=== PATIENT | male | born 1985 | race Caucasian/White ===

== ENCOUNTER 2024-03-30 05:00 | Day surgery (SDC) | payer OTHER, SELFPAY ==
[2024-03-30] VITALS (22 sets, daily range): BP systolic 101–147; BP diastolic 53–92; BMI 37.9; BMI 37.8
--- NOTE | 2024-03-30 00:48 | ED.GENMED ---
History of Present Illness
General
Chief Complaint: Abdominal Pain
Source: patient
Exam Limitations: none
Time Seen by Provider: 03/30/24 00:47
Nursing documentation reviewed up to this point in time: agreed with
History of Present Illness
History of Present Illness:
39-year-old male with history of HLD, fatty liver, depression, states 2 hours ago he had a sudden onset gas-like pains in his upper abdomen quickly progressed to significant pain across the upper abdomen and into the center of his back. He denies
fever or chills. He feels a little nauseous but has not vomited. He denies diarrhea or constipation. Pain started right after he had a couple coffee and a protein bar at 8:30 PM.
Past History
Past History
ED Past Medical History: HTN, Hypercholesterolemia and Psychiatric (Anxiety)
ED Past Surgical History: Other (left knee sx; back L5-S1 surgery 2009)
Social History
Tobacco: Smoker
Alcohol: Daily (Rum and Coke 2)
Drug: Former user (Opiates)
Personal: Single
Living: with family
Employment: Employed
Family History
Family History: Other (reviewed and non-contributory)
Review of Systems
Review of Systems
Allergies reviewed?: Yes
All Other Systems: ROS reviewed and negative except as documented in HPI and ROS
Constitutional: Denies fever or chills
Respiratory: Denies trouble breathing
Cardiac: Denies chest pain
ABD/GI: Reports abdominal pain and nausea; Denies vomiting, diarrhea, constipated, bloody stools or black stools
: Denies dysuria, frequency or difficulty voiding
Musculoskeletal: Reports no symptoms
Skin: Reports no symptoms
Neurological: Reports no symptoms
Phy Exam
Physical Exam
Physical Exam:
GENERAL: Moderate distress due to pain. A&Ox3.
CONSTITUTIONAL: Afebrile.
EYES: clear, conjunctivae normal
ENMT: moist mucus membranes, Pharynx nl
RESPIRATORY: Regular respirations, nonlabored, lungs clear.
CARDIOVASCULAR: Regular rate and rhythm, no murmurs, no rubs.
GI: Soft, obese, tender upper mid to right RUQ abdomen, normal BS
MUSCULOSKELETAL: Moves with ease. Well perfused.
SKIN: Warm, dry, pink
PSYCH: Normal mood and affect. Well kept, interactive and appropriate
NEUROLOGIC: Awake, alert and oriented. No focal neurological deficits
Course
Orders/Labs/Results
Orders:
Orders
03/30/24
RF Fluoroscopy, C-arm Routine
RF Operative Cholangiogram Routine
Reason For Exam: Elevated LFT
03/30/24 00:40
IV Insert/Care/Rem.- Treatment PRN
03/30/24 00:48
US Abdomen Complete/Upper Urgent
Comment:
Reason For Exam: RUQ pain
03/30/24 00:49
0.9% Sodium Chloride 1000 ml [Nss] 1,000 ml IV BOLUS
HYDROmorphone [Dilaudid] 1 mg IV NOW STA
Ondansetron Injectable [Zofran] 4 mg IV NOW STA
03/30/24 00:53
Complete Blood Count/With Diff Urgent
Comprehensive Metabolic Panel Urgent
Lipase Urgent
Urinalysis Reflex To Culture Urgent
Date Specimen was Collected: 03/30/24
Time Specimen was Collected: 00:40
03/30/24 02:26
Piperacillin/Tazo 3.375 Gram [Zosyn] 3.375 gram in 50 ml IV NOW
03/30/24 03:43
Admit/Transfer Patient As Directed
Co-Sign Provider:
Level of Care: Observation services
Assign to:: Medical/Surgical
Physician / Group: Riaz/General surgery
Diagnosis: acute cholecystitis
03/30/24 03:46
PRN Pain Medication Management As Directed
May give lesser potent ordered pain med per pt: Yes
preference::
Protocol:: Medication orders for pain may be administered in a
manner that supports deferring to patient preference
when the pt is:
-Requesting an ordered lesser potent pain medication.
Least to most potent pain medications are defined as:
acetaminophen < NSAID < tramadol < opioids (morphine,
oxycodone, hydromorphone).
- Requesting a lesser dose of the same medication IF
ORDERED.
- Requesting a less intrusive route of administration
if both routes are prescribed by the provider (PO <
IV).
03/30/24 03:47
Code Status As Directed
Resuscitation Status: Full Code
03/30/24 05:30
0.9% Sodium Chloride 1000 ml [Nss] 1,000 ml IV 100 mls/hr
HYDROmorphone [Dilaudid] 1 mg IV Q2HPRN PRN
03/30/24 05:30
Activity As Directed
Activity Level: Out of Bed-Early Mobility
Anti-embolism (JULISA) Hose As Directed
Type: Thigh high
Intake/ Output As Directed
Frequency: Per unit guidelines
Pneumatic Compression Sleeves As Directed
Type: Thigh high
Vital Signs As Directed
Frequency: Per unit guidelines
DX Deep Vein Thrombosis Video Routine
03/30/24 Breakfast
NPO
Allow oral meds: No
Allow clear liquids: No
NPO with Ice Chips: No
Flush (0.9% Sodium Chloride) [Flush (Nss)] See Dose Instructions IV PER PROTOCOL
03/30/24 07:46
HYDROmorphone [Dilaudid] 0.25 mg IV PACU-Q5MPRN PRN
HYDROmorphone [Dilaudid] 0.5 mg IV PACU-Q5MPRN PRN
Ondansetron Injectable [Zofran] 4 mg IV PACU-ONCEPRN PRN
Notify MD As Directed
Notify physician if: for SDS patients with known or suspected sleep obstructive sleep apnea, monitor in the
PACU.
Notify MD for any apneic/desaturation episodes
O2 Therapy [RESP] Urgent
Titrate/Wean O2 to maintain O2 sat greater than (%): 92
Special Instructions: -Provide supplemental oxygen to achieve O2 sat of 92% or greater.
-After 15 min, may wean O2 and discontinue if patient is able to maintain O2 sat of 92%
or greater during recovery period.
If patient is a discharge home, without oxygen therapy, notify anestheiologist if
unable to maintain O2 SAT of 92% or greater on room air for MD clearance.
03/30/24 07:54
Case Management Consult Once
Case Management Consult: Other
Comment: Substance abuse counseling
0.9% Sodium Chloride [Nss (Preservative Free)] See Protocol IV PRN PRN
FOLic ACID [Folvite] 1 mg 0.9% Sodium Chloride 50 ml [Nss] 50 ml IV DAILYPRN
Lorazepam [Ativan] 1 mg IV Q1HPRN PRN
Lorazepam [Ativan] 1 mg PO Q2HPRN PRN
Lorazepam [Ativan] 2 mg IV Q1HPRN PRN
03/30/24 08:00
FOLic ACID [Folvite] 1 mg PO DAILY
Nicotine [Nicoderm Transdermal] 21 mg TRANSDERM DAILY
Normosol (Mult Electrolytes) [Normosol-R] 1,000 ml IV PER PROTOCOL
Thiamine Injection 200 mg IV Q12
03/30/24 08:40
Pregabalin [Lyrica] 100 mg PO TID
03/30/24 08:42
Acetaminophen [Tylenol] 650 mg PO Q4HPRN PRN
03/30/24 09:00
Piperacillin/Tazo 3.375 Gram [Zosyn] 3.375 gram in 50 ml IV Q6H
03/30/24 09:43
Fentanyl Citrate/Pf [Sublimaze] 100 mcg .ROUTE .STK-MED ONE
Midazolam HCl [Versed] 2 mg .ROUTE .STK-MED ONE
03/30/24 09:44
Dexamethasone Sod Phosphate [Decadron] 20 mg .ROUTE .STK-MED ONE
Lidocaine HCl/Pf [Xylocaine-Mpf 1% Vial] 50 mg .ROUTE .STK-MED ONE
Ondansetron Injectable [Zofran] 4 mg .ROUTE .STK-MED ONE
Propofol [Diprivan] 20 ml .ROUTE .STK-MED
Rocuronium [place] [Rocuronium] 50 mg .ROUTE .STK-MED ONE
03/30/24 Lunch
Low Fat
At Your Request: Full Participation
Bupivacaine 0.25%Pf/Epinephrin [Sensorcaine-Epi 0.25%-0.0005] 30 ml .ROUTE .STK-MED ONE
Iohexol [Omnipaque] 50 ml .ROUTE .STK-MED ONE
03/30/24 11:01
Fentanyl Citrate/Pf [Sublimaze] 100 mcg .ROUTE .STK-MED ONE
HYDROmorphone [Dilaudid] 1 mg .ROUTE .STK-MED ONE
03/30/24 11:05
Acetaminophen 1000MG/100Ml [Ofirmev] 1,000 mg in 100 ml .ROUTE .STK-MED
03/30/24 11:09
OR Pathology Routine
Pre-Operative Diagnosis: ACUTE CHOLECYSTITIS
Operative Procedure: LAPAROSCOPIC CHOLECYSTECTOMY
Surgeon: CHASTITY
Circulating Nurse: CORRY
Specimen Type: GALLBLADDER
03/30/24 12:06
Glucagon [GlucaGen] 1 mg .ROUTE .STK-MED ONE
Glycopyrrolate [Robinul] 0.2 mg .ROUTE .STK-MED ONE
Neostigmine [Prostigmin] 3 mg .ROUTE .STK-MED ONE
03/30/24 12:21
HYDROmorphone [Dilaudid] 1 mg .ROUTE .STK-MED ONE
03/30/24 12:59
HYDROmorphone [Dilaudid] 0.25 mg .ROUTE .STK-MED ONE
03/30/24 13:18
HYDROmorphone [Dilaudid] 0.25 mg .ROUTE .STK-MED ONE
03/30/24 14:25
Admit Patient As Directed
Co-Sign Provider:
Level of Care: Post Proc/Surg Recovery
Assign to:: Medical/Surgical
Physician / Group: Chastity / GILBERTO
Diagnosis: Acute cholecystitis
Reason for Overnight Stay: Standard of Care
HYDROmorphone [Dilaudid] 0.5 mg IV Q2HPRN PRN
Ketorolac [Toradol] 10 mg IV Q6HPRN PRN
Oxycodone [Roxicodone] 5 mg PO Q4HPRN PRN
PRN Pain Medication Management As Directed
May give lesser potent ordered pain med per pt: Yes
preference::
Protocol:: Medication orders for pain may be administered in a
manner that supports deferring to patient preference
when the pt is:
-Requesting an ordered lesser potent pain medication.
Least to most potent pain medications are defined as:
acetaminophen < NSAID < tramadol < opioids (morphine,
oxycodone, hydromorphone).
- Requesting a lesser dose of the same medication IF
ORDERED.
- Requesting a less intrusive route of administration
if both routes are prescribed by the provider (PO <
IV).
DX Deep Vein Thrombosis Video Routine
03/30/24 14:26
Rx Incentive Spirometry [RESP] Routine
Frequency: q1h while awake
# of times per hour: 10
03/30/24 15:22
Discharge Patient As Directed
Discharge patient after: d/c once tolerating diet and sat >92% on RA
Do you have a designated caregiver: Yes-same as spokesperson
03/30/24 22:00
Trazodone [Desyrel] 50 mg PO HS
03/31/24 18:00
Enoxaparin Sodium [Lovenox] 40 mg SC QPM
04/02/24 08:00
Thiamine HCl [Vitamin B1] 100 mg PO BID
Abnormal Lab Results
03/30/24
00:53
MPV 10.9 H fL
(7.4-10.4)
Absolute Monos (auto) 1.0 H 10^3/uL
(0.1-0.6)
Monocytes % 10.3 H %
(1.7-9.3)
Carbon Dioxide 31 H mmol/L
(22-30)
Glucose 105 H mg/dl
(70-99)
AST 68 H U/L
(17-59)
ALT 51 H U/L
(0-50)
03/30/24 00:53
03/30/24 00:53
Vital Signs
Initial and Last Documented VS:
Initial Vital Signs
Temp Pulse Resp BP Pulse Ox
98.8 F 68 20 142/92 99
03/30/24 00:38 03/30/24 00:38 03/30/24 00:38 03/30/24 00:38 03/30/24 00:38
Last Documented Vital Signs
Temp Pulse Resp BP Pulse Ox
97.4 F 82 16 147/77 96
03/30/24 17:56 03/30/24 17:56 03/30/24 17:56 03/30/24 17:56 03/30/24 16:10
MDM/Problems Addressed
Differential Diagnosis Includes:
Biliary colic, cholecystitis
MDM/Problems Addressed:
39-year-old male with history of HLD, fatty liver, depression states 2 hours ago he had a sudden onset gas-like pains in his upper abdomen quickly progressed to significant pain across the upper abdomen and into the center of his back. He denies
fever or chills. He feels a little nauseous but has not vomited. He denies diarrhea or constipation. Pain started right after he had a couple coffee and a protein bar at 8:30 PM.
Appears moderately uncomfortable
Afebrile
CBC, CMP with no clinically significant abnormalities
UA negative
Ultrasound showing acute cholecystitis
General surgeon Dr. Mello notified and requests admission to house provider, Juan Carlos, IVF's and n.p.o.
Has provider Janel Vivas NP notified
*Critical Care Note
Total Time (30-74mins, 75-104mins- exclusive of procedures): Not Applicable
ED Attending Note
-
Portions of this chart may have been created with voice recognition software.� Occasional wrong word or��sound alike� substitutions may have occurred due to the inherent limitations of voice recognition software.
Discharge Plan
Departure
Patient Disposition: Admit
Date of Disposition: 03/30/24
Time of Disposition: 02:30
Admit to: Med/Surg
Presentation/result/management discussed w/ accepting MD/DO:
Condition: Fair
Discharge Problem:
Acute cholecystitis
Interventions
Interventions:
*Risk Screen - Suicide Last Done: 03/30/24 00:56
*General Assessment Last Done: 03/30/24 01:03
*Neglect/Abuse Screening Last Done: 03/30/24 00:56
ED- Fall Risk Assessment Last Done: 03/30/24 01:06
*ED COVID-19 Vaccine History Last Done: 03/30/24 01:03
*Nursing Disposition Last Done: 03/30/24 05:20
VL-Psxdnk-Ielkbvgqut Assessment Last Done: 03/30/24 03:00
Discharge Date and Time
Discharge Date/Time: 03/30/24 05:20
[2024-03-30] MEDS: ZOFRAN 4 MG IV (00:59)
[2024-03-30] MEDS: DILAUDID 1 MG IV ×2 (00:59→08:44)
[2024-03-30] MEDS: NSS 1000 IV ×2 (00:59→05:55)
[2024-03-30 01:07] LABS: % Basophils 0.9 % (0-2); % Eosinophils 2.2 % (0-6); % Immature Granulocytes 0.2 % (0-0.5); % Lymphocytes 36.9 % (20.5-51.1); % Monocytes 10.3 % (1.7-9.3); % Neutrophils 49.5 % (42.2-75.2); Absolute Basophils 0.1 10^3/uL (0-0.2); Absolute Eosinophils 0.2 10^3/uL (0-0.7); Absolute Lymphocytes 3.4 10^3/uL (1.2-3.4); Absolute Neutrophils 4.6 10^3/uL (1.4-6.5); Hematocrit 44.9 % (39.0-52.0); Hemoglobin 15.6 g/dL (13.0-18.0); Mean Corp Hgb Conc. 34.7 g/dL (33.0-37.0); Mean Corpuscular Hgb 29.4 pg (27.0-31.0); Mean Corpuscular Volume 84.6 fL (80.0-94.0); Mean Platelet Volume 10.9 fL (7.4-10.4); Nucleated Red Blood Cells % 0 % (-); Platelet Count 178 10^3/uL (130-400); Red Blood Cell Count 5.31 10^6/uL (4.70-6.10); Red Cell Dist. Width 13.3 % (11.5-14.5); White Blood Cell Count 9.3 10^3/uL (4.8-10.8)
[2024-03-30 01:08] LABS: Urine Albumin Negative (Neg - Trace); Urine Bilirubin Negative (Negative); Urine Character Clear (Clear); Urine Color Yellow; Urine Glucose Negative (Negative); Urine Ketone Negative (Negative); Urine Leukocyte Negative (Negative); Urine Nitrite Negative (Negative); Urine Occult Blood Negative (Negative); Urine Urobilinogen Negative (Neg - 1+)
[2024-03-30 01:34] LABS: ALT (SGPT) 51 U/L (0-50); AST (SGOT) 68 U/L (17-59); Albumin 4.8 g/dl (3.5-5.0); Alkaline Phosphatase 61 U/L (38-126); Blood Urea Nitrogen 17 mg/dl (9-20); Calcium 9.9 mg/dl (8.4-10.2); Carbon Dioxide 31 mmol/L (22-30); Chloride 104 mmol/L (98-107); Estimated Creatinine Clearance > 125 ml/min; Glucose 105 mg/dl (70-99); Lipase 152 U/L (23-300); Sodium 141 mmol/L (135-145); Total Bilirubin 0.8 mg/dl (0.2-1.3); Total Protein 7.2 g/dl (6.3-8.2); eGFR > 60.00
[2024-03-30] MEDS: ZOSYN 50 IV ×3 (02:34→15:07)
--- NOTE | 2024-03-30 05:32 | HPS.HSE ---
Addendum entered and electronically signed by Jose Abraham MD 03/30/24 08:42:
Patient seen and examined.
Patient is a 39 yo M with a PMH of anxiety/depression, HTN, HLD, s/p orthopedic procedures on his lumbosacral spine and LEFT knee, current vaping, prior issues with alcohol and opioid use, and chronic pain. Mr. Acuna presents with 24 hours of RUQ
abdominal pain. He states that his symptoms began acutely yesterday evening approximately 1 hour after dinner. He describes intense pain and pressure in his upper abdomen particularly in his RUQ and radiating to his back. Associated mild nausea,
but no vomiting. No fevers or chills. He denies any jaundice, pale stools, or tea colored urine. He denies any prior attacks of similar discomfort or pain. He states that years ago he was alerted to the presence of small stones and sludge within
his gallbladder during a workup and admission for alcohol withdrawal. Of note, since that admission he has completely abstained from alcohol and is heavily devoted and involved in AA.Currently he states that his pain is improved, but not completely
resolved.
Gen: NAD
Abd: soft, tender to palpation in RUQ, + Abraham's sign, mild distension, obese, non-peritoneal
Labs and ultrasound imaging were reviewed.
Patient is a 39 yo M p/w acute cholecystitis
The natural history and pathophysiology of biliary and stone disease was briefly discussed. Anatomy was briefly reviewed. Options for management including medical management with antibiotics and a low-fat diet versus surgical management with
cholecystectomy were considered and discussed. Pros and cons of both approaches was discussed. Given his persistent discomfort recommend cholecystectomy.
Plan for a laparoscopic cholecystectomy with possible cholangiogram. The procedure itself, as well as the risks, benefits, and alternatives was discussed. Specifically, we discussed the risks of bleeding, infection, injury to surrounding
structures (bowel, bile ducts), CBD injury, need for open procedure. Typical postprocedural recovery including pain management, hospital course, and the potential need for a low-fat diet was discussed. All questions answered. Consent signed.
-- Laparoscopic cholecystectomy with possible IOC
-- NPO, IVF
-- Antibiotics: Zosyn
-- Pain control: Tylenol and IV Dilaudid as needed
Original Note:
Family Physician
-
Family Physician: Fabio Vargas
Chief Complaint
-
abdominal pain
History of Present Illness
This is a pleasant 39 year old male who experienced abdominal pain radiating to his back after eating a snack a few hours prior to arrival. No loose stool but admits to some nausea but denies vomiting. Nothing made his symptoms better or worse. PMH
includes HTN, anxiety, and prior opiate use. He admits to daily alcohol use.
Medical History
Past Medical History
Past Medical History: Reports HTN, Hypercholesterolemia and Psychiatric (anxiety)
Past Surgical History: Reports Orthopedic (L5-S1 2010, L knee)
Social History
Tobacco: Smoker
Alcohol: Daily (2 rum and cokes per report)
Drug: Former User (opiates)
Personal: Single
Living: With Family
Employment: Employed
Family History
Family History: Hypertension
Allergies / Home Medications
Allergies
Allergies
Allergy/AdvReac Type Severity Reaction Status Date / Time
Sulfa (Sulfonamide Allergy Unknown Verified 03/30/24 00:38
Antibiotics)
[Sulfa (Sulfonamides)]
sulfamethoxazole Allergy Tongue Verified 03/30/24 00:38
[From Bactrim] Swelling
trimethoprim [From Bactrim] Allergy Tongue Verified 03/30/24 00:38
Swelling
Home Medications
fluoxetine 20 mg capsule 60 mg PO DAILY Mental Health/Anxiety 12/08/20
ibuprofen 200 mg tablet 400 mg PO TIDPRN PRN mild pain 12/08/20
pregabalin 100 mg capsule (Lyrica) 100 mg PO TID 03/30/24
reflects when Allergies were last updated in [facility].
Home Medications with original date entered in [facility]
Allergy/Medication List:
Allergies
Allergy/AdvReac Type Severity Reaction Status Date / Time
Sulfa (Sulfonamide Allergy Unknown Verified 03/30/24 00:38
Antibiotics)
[Sulfa (Sulfonamides)]
sulfamethoxazole Allergy Tongue Verified 03/30/24 00:38
[From Bactrim] Swelling
trimethoprim [From Bactrim] Allergy Tongue Verified 03/30/24 00:38
Swelling
Review of Systems
-
History Source: Patient and Coordinated Provider (previously obtained medical records)
Constitutional: Reports Fatigue
EENT: Reports No Symptoms
Respiratory: Reports No Symptoms
Cardiac: Reports No Symptoms
Abdomen/GI: Reports Abdominal Pain and Nausea
: Reports No Symptoms
Musculoskeletal: Reports No Symptoms
Skin: Reports No Symptoms
Neurological: Reports No Symptoms
Endocrine: Reports No Symptoms
Hematologic/Lymphatic: Reports No Symptoms
Psych: Reports No Symptoms
Physical Exam
Vital Signs
Vital Signs
Temp Pulse Resp BP Pulse Ox
98.8 F 60 18 112/58 92
03/30/24 00:38 03/30/24 05:15 03/30/24 02:00 03/30/24 05:00 03/30/24 05:15
Physical Exam
General: Well Developed, Well Nourished, No Apparent Distress and Comfortable
HEENT: NormoCephalic, Moist mucous membranes and PERRLA
Respiratory: Clear and Non Labored Respirations
Cardiac: Regular Rhythm
Breast: Deferred by me
GI: Normal Bowel Sounds
Rectal: Deferred by Provider
Genito-urinary: Clear Urine
Musculoskeletal: No Clubbing, No Cyanosis and No Edema
Skin: Warm and Dry
Neuro: Awake, Alert, AO x 3 and No Motor Deficits
Hematologic/Lymphatic: No Lymphadenopathy
Psych: Calm
Laboratory Results
-
03/30/24 00:53
03/30/24 00:53
Laboratory Results
Total Bilirubin 0.8 mg/dl (0.2-1.3) 03/30/24 00:53
AST 68 U/L (17-59) H 03/30/24 00:53
ALT 51 U/L (0-50) H 03/30/24 00:53
Alkaline Phosphatase 61 U/L (38-126) 03/30/24 00:53
Lipase 152 U/L (23-300) 03/30/24 00:53
Data Reviewed
-
Diagnostic Radiology: Report Reviewed by me
Lab Data: Labs Reviewed by me
Old Records: Reviewed
Impression/Plan
-
IMPRESSION: acute cholecystitis
PLAN: This is a pleasant 39 year old male who experienced abdominal pain radiating to his back after eating a snack a few hours prior to arrival. No loose stool but admits to some nausea but denies vomiting. Nothing made his symptoms better or
worse. PMH includes HTN, anxiety, and prior opiate use. He admits to daily alcohol use.
*Acute cholecystitis: NPO, NS IVF, Zosyn IV.
*HTN: Trend bp
*Depression/anxiety:Fluoxetine post op
*DVT prophylaxis: TEDS/Sequential
*Disposition: General surgery service
--- NOTE | 2024-03-30 06:12 | TRANSFER ---
Pt arrived from ED at 0530 in stretcher. Pt was able to walk from stretcher to bed in room. Dx of acute cholecystitis, denied pain. VSS. Pt made aware of NPO status for possible OR today. Assessment ongoing.
[2024-03-30] MEDS: THIAMINE INJECTION 200 MG IV (08:27)
[2024-03-30] MEDS: NICODERM TRANSDERMAL 21 MG TRANSDERM (08:27)
[2024-03-30] MEDS: FOLVITE 1 MG PO (08:27)
--- NOTE | 2024-03-30 08:53 | W.SUR.PREOP ---
Pre-Operative Surgical Note
-
I have examined this patient prior to the performance of the scheduled procedure.
The patient's condition is unchanged from the time of the current History and
Physical and the patient is able to undergo the scheduled procedure.
[2024-03-30] MEDS: LYRICA 100 MG PO ×2 (09:00→15:19)
--- NOTE | 2024-03-30 12:17 | W.IMMPOSTOP ---
Addendum entered and electronically signed by Jose Abraham MD 03/30/24 14:02:
[facility]#[id number]
Original Note:
Surgical Immed Post Op Note
-
Primary Surgeon: Jarad
Assisting Surgeon: RENETTA Suggs
Pre-op Diagnosis: Acute cholecystitis
Post-op Diagnosis: Acute cholecystitis
Procedure Performed: Laparoscopic cholecystectomy with IOC
Anesthesia Type: General
Specimen / Cultures:
1. Gallbladder
Estimated Blood Loss: 51 cc
Complications: None
Operative Findings:
1. Acute on chronic inflammation of GB, edema and thickened wall, distended (decompression needle used)
2. Critical view
3. IOC negative
4. Severe fatty liver disease with nodular liver
[2024-03-30] MEDS: DILAUDID 0.25 MG IV ×2 (13:01→13:19)
--- NOTE | 2024-03-30 17:07 | CM ---
met with patient and father at bedside.patient sree with his parents in house with 2 jessica,his bed and bath is on the second level,he amb i and is i with his ad's.his pcp is dr palomares and he uses [facility].he has never had a vn or been to ip
rehab.
patient is vicki fuentes,he is walking,urinating,stable for dc home with no needs.
== END 2024-03-30 18:00 | disposition home or self-care (01) ==
LOC: SDS 05:00
PROVIDERS: ATTENDING PHYSICIAN Surgery; EMERGENCY PHYSICIAN Student in an Organized Health Care Education/Training Program; FAMILY PHYSICIAN Family Medicine
DX: K80.12 Calculus of gallbladder with acute and chronic cholecystitis without obstruction (principal)
CPT/HCPCS: 47563; 88304; 74300; 76000; 76700; 80053; 81003; 83690; 85025; 96361; 96365; 96375; 99285; G0378; J1610

== ENCOUNTER 2025-01-24 19:48 | Emergency (ER) | payer OTHER, SELFPAY ==
[2025-01-24] VITALS (8 sets, daily range): BP systolic 125–140; BP diastolic 85–91; BMI 40.8
[2025-01-24] MEDS: DECADRON 10 MG PO (20:00)
[2025-01-24] MEDS: BENADRYL 50 MG IV (20:00)
--- NOTE | 2025-01-24 20:11 | ED.GENMED ---
History of Present Illness
General
Chief Complaint: Allergic Reaction
Source: patient
Exam Limitations: none
Time Seen by Provider: 01/24/25 20:09
Nursing documentation reviewed up to this point in time: agreed with
History of Present Illness
History of Present Illness:
Patient to ED for allergic reaction. States he was prescribed azithromycin, augmentin and benzonatate for suspected pneumonia. States he has had a fever and cough for the past few days. Evaluated by PCP and placed on meds. States he took all 3
at the same time and immediately became hot, diaphoretic. Developed chest tightness and facial swelling. Brought to ED by sig/other for eval.
Past History
Past History
ED Past Medical History: HTN, Hypercholesterolemia and Psychiatric (Anxiety)
ED Past Surgical History: Other (left knee sx; back L5-S1 surgery 2009)
Social History
Tobacco: Smoker
Alcohol: Daily (Rum and Coke 2)
Drug: Former user (Opiates)
Personal: Single
Living: with family
Employment: Employed
Family History
Family History: Other (reviewed and non-contributory)
Review of Systems
Review of Systems
Allergies reviewed?: Yes
All Other Systems: ROS reviewed and negative except as documented in HPI and ROS
Constitutional: Reports fatigue
EENT: Reports other (facial swelling)
Respiratory: Reports cough (cough x 1 week)
Cardiac: Reports no symptoms
ABD/GI: Reports no symptoms
: Reports no symptoms
Musculoskeletal: Reports no symptoms
Skin: Reports other (facial swelling. Generalized erythema)
Neurological: Reports dizzy, headache and weakness
Psychiatric: Reports no symptoms
Phy Exam
General Physical Exam
General Presentation: moderate distress
General age: appears stated age
General Skin: warm and dry
General Habitus: normal
ENT Exam
ENT Exam: EOMI, pharynx normal, neck supple and swallowing well
Cardiovascular Exam
Cardiovascular Exam: regular rate/rhythm and no edema
Pulmonary Exam
Pulmonary Exam: lungs clear and no respiratory distress
Neurological Exam
Neurological Exam: alert, oriented x3, CN II-XII intact, no motor deficits, no sensory deficits and speech normal
Musculoskeletal Exam
Musculoskeletal Exam: full ROM and neuro vasc intact
Skin Exam
Skin Exam: other (Generalized erythema, swelling to lips and eyelids)
Psychiatric Exam
Psychiatric Exam: normal mood/affect
Course
Orders/Labs/Results
Orders:
Orders
01/24/25 19:59
Dexamethasone Pf [Decadron] 10 mg PO NOW STA
01/24/25 20:00
Diphenhydramine [Benadryl] 50 mg IV NOW STA
01/24/25 20:32
CR Chest - 2 Views Urgent
Comment:
Reason For Exam: cough
01/24/25 21:59
Doxycycline [Vibramycin] 100 mg PO NOW STA
Vital Signs
Initial and Last Documented VS:
Initial Vital Signs
Temp Pulse Resp BP Pulse Ox
99.1 F 115 24 125/85 90
01/24/25 19:53 01/24/25 19:53 01/24/25 19:53 01/24/25 19:53 01/24/25 19:53
Last Documented Vital Signs
Temp Pulse Resp BP Pulse Ox
99.2 F 86 14 139/85 94
01/24/25 22:55 01/24/25 21:00 01/24/25 21:00 01/24/25 21:00 01/24/25 21:00
*Pulse Oximetry
Patient hypoxic: no
*Critical Care Note
Total Time (30-74mins, 75-104mins- exclusive of procedures): Not Applicable
Update Note
Update Note:
Given decadron 10mg IV, benadryl 25mg IV immediately on arrival to ED. No respiratory distress. Given 1L NSS and then pepcid 20mg IV with improvement. Resting comfortably.
Symptoms resolved with IVF and medications. Will continue prednisone taper at home. Placed on doxy in ED without reaction to med. He is discharged home. Will follow up [facility] PCP. Given instructions on s/s to return to ED and he is agreeable to
plan.
ED Attending Note
-
Portions of this chart may have been created with voice recognition software.� Occasional wrong word or��sound alike� substitutions may have occurred due to the inherent limitations of voice recognition software.
Discharge Plan
Departure
Patient Disposition: Home (Routine Discharge)
Date of Disposition: 01/24/25
Time of Disposition: 22:57
Patient with high blood pressure during this ER visit?: No
Condition: Good
Covid-19: Not Applicable
Discharge Problem:
Allergic reaction
Instructions: Allergic reaction - ED discharge instructions
Prescriptions:
New
doxycycline hyclate 100 mg capsule
100 mg PO BID Qty: 14 0RF
prednisone 10 mg Tablet
See Rx Instructions .ROUTE .COMPLEX Qty: 30 0RF
Rx Instructions:
Take By Mouth:
40 mg daily x3 days, 30 mg daily x3 days,
20 mg daily x3 days, 10 mg daily x3 days.
No Action
ibuprofen 200 MG tablet
400 mg PO TIDPRN PRN (Reason: mild pain)
fluoxetine 20 MG capsule
60 mg PO DAILY
pregabalin [Lyrica] 100 mg Capsule
100 mg PO TID
trazodone
50 mg PO
acetaminophen [acetaminophen] 325 mg tablet
650 mg PO Q4HPRN PRN (Reason: mild pain) Qty: 1 0RF
Referrals:
Fabio Vargas DO [Family Provider, Family Practice] - Tomorrow
Activity Restrictions/Additional Instructions:
Return to the emergency department immediately for any difficulty breathing or swallowing.
Interventions
Interventions:
*General Assessment Last Done: 01/24/25 19:53
*Nursing Disposition Last Done: 01/24/25 23:21
ED- Cardiac Assessment Last Done: 01/24/25 20:03
ED- Pulmonary Assessment Last Done: 01/24/25 20:03
ED-Skin Assessment Last Done: 01/24/25 20:04
Discharge Date and Time
Discharge Date/Time: 01/24/25 23:22
Print Language: KHMER
[2025-01-24] MEDS: VIBRAMYCIN 100 MG PO (22:04)
== END 2025-01-24 23:22 | disposition home or self-care (01) ==
LOC: EMR 19:48
PROVIDERS: EMERGENCY PHYSICIAN Emergency Medicine; FAMILY PHYSICIAN Family Medicine
DX: R22.0 Localized swelling, mass and lump, head (principal); R61 Generalized hyperhidrosis; R07.89 Other chest pain; T50.915A Adverse effect of multiple unspecified drugs, medicaments and biological substances, initial encounter; F17.200 Nicotine dependence, unspecified, uncomplicated
CPT/HCPCS: 99284; 96374; 71046

== ENCOUNTER 2025-05-01 19:51 | Emergency (ER) | payer OTHER, SELFPAY ==
[2025-05-01 19:53] VITALS: BP 135/86
[2025-05-01 20:14] LABS: Hematocrit 44.1 % (39.0-52.0); Hemoglobin 15.6 g/dL (13.0-18.0); Mean Corp Hgb Conc. 35.4 g/dL (33.0-37.0); Mean Corpuscular Volume 87.0 fL (80.0-94.0); Nucleated Red Blood Cells % 0 % (-); Platelet Count 163 10^3/uL (130-400); Red Cell Dist. Width 13.3 % (11.5-14.5)
[2025-05-01 20:28] LABS: ALT (SGPT) 32 U/L (0-50); AST (SGOT) 29 U/L (17-59); Albumin 4.7 g/dl (3.5-5.0); Alkaline Phosphatase 44 U/L (38-126); Blood Urea Nitrogen 4 mg/dl (9-20); Calcium 8.8 mg/dl (8.4-10.2); Carbon Dioxide 28 mmol/L (22-30); Chloride 103 mmol/L (98-107); Glucose 151 mg/dl (70-99); Lipase 206 U/L (23-300); Potassium 3.9 mmol/L (3.5-5.1); Sodium 142 mmol/L (135-145); Total Protein 7.1 g/dl (6.3-8.2); eGFR > 60.00
[2025-05-01 20:39] LABS: Troponin I < 0.012 ng/ml
[2025-05-01 20:55] VITALS: BP 158/85
[2025-05-01 21:00] VITALS: BP 131/84
--- NOTE | 2025-05-01 21:28 | ED.GENMED ---
History of Present Illness
General
Chief Complaint: Withdrawal Symptoms
Source: patient
Exam Limitations: none
Time Seen by Provider: 05/01/25 21:12
History of Present Illness
History of Present Illness:
See MDM
Past History
Past History
ED Past Medical History: HTN, Hypercholesterolemia and Psychiatric (Anxiety)
ED Past Surgical History: Other (left knee sx; back L5-S1 surgery 2009)
Social History
Tobacco: Smoker
Alcohol: Daily (Rum and Coke 2)
Drug: Former user (Opiates)
Personal: Single
Living: with family
Employment: Employed
Family History
Family History: Other (reviewed and non-contributory)
Phy Exam
Physical Exam
Physical Exam:
See MDM
Course
Orders/Labs/Results
Orders:
Orders
05/01/25 19:57
ECG [Electrocardiogram (*1)] Urgent
Reason for Study: Chest Pain
EKG- Treatment ONCE
05/01/25 20:08
Complete Blood Count/With Diff Urgent
Comprehensive Metabolic Panel Urgent
Lipase Urgent
Troponin I Urgent
05/01/25 21:25
0.9% Sodium Chloride 1000 ml [Nss] 1,000 ml IV BOLUS
Midazolam HCl [Versed] 2 mg IV NOW STA
Abnormal Lab Results
05/01/25
20:08
BUN 4 L mg/dl
(9-20)
Creatinine 0.5 L mg/dL
(0.7-1.3)
Glucose 151 H mg/dl
(70-99)
05/01/25 20:08
05/01/25 20:08
Vital Signs
Initial and Last Documented VS:
Initial Vital Signs
Temp Pulse Resp BP Pulse Ox
98.6 F 80 16 135/86 93
05/01/25 19:53 05/01/25 19:53 05/01/25 19:53 05/01/25 19:53 05/01/25 19:53
Last Documented Vital Signs
Temp Pulse Resp BP Pulse Ox
98.6 F 81 18 117/78 92
05/01/25 19:53 05/01/25 21:54 05/01/25 21:54 05/01/25 21:54 05/01/25 21:54
MDM/Problems Addressed
Differential Diagnosis Includes:
Note:
CHIEF COMPLAINT(S)
Kratom withdrawal symptoms
HISTORY OF PRESENT ILLNESS
The patient is a 40-year-old male presenting with symptoms related to kratom withdrawal. The patient reports an onset of symptoms on the same day as this visit. He describes having gone through previous episodes of kratom withdrawal, and in the
past, he attended a rehabilitation facility for treatment. However, he is not interested in returning to such a facility. His current symptoms include marked anxiety and nausea, though he denies any vomiting. The treatment plan discussed involves
administering benzodiazepine, an alpha agonist, to mitigate withdrawal symptoms. He has a strong motivation to discontinue kratom use.
REVIEW OF SYSTEMS
- Gastrointestinal: Nausea without vomiting.
- Neurological: Reports anxiety.
PHYSICAL EXAM
General: Alert, no acute distress.
Skin: Warm, dry.
Head: Normocephalic, atraumatic
Neck: Appears supple, trachea midline.
Eyes, Ears, Nose, Mouth, and Throat: Dry mucous membranes
Cardiovascular: No signs of cyanosis. No murmur
Respiratory: Respirations are non-labored.
Abdomen: Non-distended
Musculoskeletal: No deformities
Neurological: No focal neurological deficit observed.
Psychiatric: Anxious
PROBLEM LIST
Acute:
- Kratom withdrawal symptoms
- Anxiety
- Nausea
PLAN
1. Administer versed for management of withdrawal symptoms.
2. Perform blood work to identify any abnormalities that might necessitate inpatient admission.
DIFFERENTIAL DIAGNOSIS
The Differential Diagnosis includes, in no particular order and is not limited to:
1. Kratom withdrawal
2. Anxiety disorder
3. Substance use disorder
4. Generalized anxiety disorder
5. Panic disorder
6. Gastroenteritis
7. Hyperthyroidism
8. Drug-induced nausea
9. Depression
10. Acute stress reaction
SUMMARY OF ENCOUNTER
The 40-year-old male patient presented to the emergency department experiencing kratom withdrawal symptoms including anxiety and nausea. He previously attended rehab but does not wish to return. Currently, the patient desires treatment without
hospital admission, understanding the necessity of possibly visiting a detox facility if symptoms persist. The management plan in the emergency department involved administering clonidine to alleviate withdrawal symptoms.
DISPOSITION
Discharge.
ASSESSMENT
The patient is experiencing kratom withdrawal symptoms, primarily characterized by anxiety and nausea.
EMERGENCY TREATMENTS ADMINISTERED
Clonidine was administered to manage withdrawal symptoms.
PLAN
The patient is to continue with clonidine for symptom management. Blood work will be conducted to identify any abnormalities that could require inpatient treatment. IV fluids and possibly an IV clonidine-like medication will be considered for more
rapid relief if needed.
PATIENT EDUCATION AND COUNSELING
The patient was counseled about the option to visit a drug and alcohol counselor and was informed of the ability to return to the emergency department if symptoms worsen or if he feels unsafe.
FOLLOW-UP INSTRUCTIONS
The patient was advised to seek follow-up care if symptoms do not improve or if he experiences any severe symptoms.
MEDICATION RECONCILIATION
Clonidine administered for withdrawal symptom management.
MEDICAL DECISION MAKING
- Number and Complexity of Problems Addressed: Chronic conditions affecting care include kratom withdrawal symptoms. The differential diagnosis includes kratom withdrawal, anxiety disorder, substance use disorder, generalized anxiety disorder, panic
disorder, gastroenteritis, hyperthyroidism, drug-induced nausea, depression, and acute stress reaction.
- Data:
- Category 1: Clonidine was administered to manage kratom withdrawal symptoms in the emergency department.
- Category 3: The patients reluctance to engage with drug and alcohol counselors was noted and discussed with the patient.
DIAGNOSIS
- F19.239 Other psychoactive substance dependence with withdrawal, unspecified
- R45.7 State of emotional shock and stress, unspecified
*Pulse Oximetry
SaO2: 93
Oxygen Mode of Delivery: Room air
Patient hypoxic: no
*Critical Care Note
Total Time (30-74mins, 75-104mins- exclusive of procedures): Not Applicable
ED Attending Note
-
Portions of this chart may have been created with voice recognition software.� Occasional wrong word or��sound alike� substitutions may have occurred due to the inherent limitations of voice recognition software.
Discharge Plan
Departure
Patient Disposition: Home (Routine Discharge)
Date of Disposition: 05/01/25
Time of Disposition: 23:36
Patient with high blood pressure during this ER visit?: No
Discharge Problem:
Acute drug withdrawal syndrome
Instructions: Drug Misuse and Addiction (DC)
Prescriptions:
New
clonazepam [Klonopin] 1 mg tablet
See Rx Instructions .ROUTE .COMPLEX Qty: 13 0RF
Rx Instructions:
1 tab TID day 1-2, 1 tab BID day 3-4, 1 tab daily day 5-7
No Action
ibuprofen 200 MG tablet
400 mg PO TIDPRN PRN (Reason: mild pain)
fluoxetine 20 MG capsule
60 mg PO DAILY
pregabalin [Lyrica] 100 mg Capsule
100 mg PO TID
trazodone
50 mg PO
acetaminophen [acetaminophen] 325 mg tablet
650 mg PO Q4HPRN PRN (Reason: mild pain) Qty: 1 0RF
doxycycline hyclate 100 mg capsule
100 mg PO BID Qty: 14 0RF
prednisone 10 mg Tablet
See Rx Instructions .ROUTE .COMPLEX Qty: 30 0RF
Rx Instructions:
Take By Mouth:
40 mg daily x3 days, 30 mg daily x3 days,
20 mg daily x3 days, 10 mg daily x3 days.
Referrals:
UNKNOWN - PT DOES,NOT KNOW [Unknown Provider]
Activity Restrictions/Additional Instructions:
Please return for any worsening symptoms.
You may return at any time if you have further concerns.
Please follow up with your doctor at the first available appointment, preferably this week.
You can return anytime to speak to the drug and alcohol counselors.
Interventions
Interventions:
*Risk Screen - Suicide Last Done: 05/01/25 21:29
*General Assessment Last Done: 05/01/25 21:29
*Neglect/Abuse Screening Last Done: 05/01/25 21:29
*ED- Fall Risk Assessment Last Done: 05/01/25 21:29
*ED COVID-19 Vaccine History Last Done: 05/01/25 21:29
ED- Neurological Assessment Last Done: 05/01/25 21:29
ED-Psychological Assessment Last Done: 05/01/25 21:29
Discharge Date and Time
Print Language: S[place]UD[place]
[2025-05-01] MEDS: NSS 1000 IV (21:44)
[2025-05-01] MEDS: VERSED 2 MG IV (21:49)
[2025-05-01 21:52] VITALS: BMI 33.8
[2025-05-01 21:54] VITALS: BP 117/78
[2025-05-01 22:00] VITALS: BP 109/69
[2025-05-01 23:00] VITALS: BP 110/66
[2025-05-01] MEDS: KLONOPIN 1 MG PO (23:44)
== END 2025-05-02 | disposition home or self-care (01) ==
LOC: EMR 19:51
PROVIDERS: Emergency Medicine; EMERGENCY PHYSICIAN Student in an Organized Health Care Education/Training Program; FAMILY PHYSICIAN Family Medicine
DX: F19.939 Other psychoactive substance use, unspecified with withdrawal, unspecified (principal); I10 Essential (primary) hypertension; E78.00 Pure hypercholesterolemia, unspecified; F17.200 Nicotine dependence, unspecified, uncomplicated
CPT/HCPCS: 99284; 96374; 96361; 80053; 83690; 84484; 85025; 93005